=== PATIENT | female | born 1970 | race Caucasian/White ===

== ENCOUNTER 2018-10-12 21:45 | Emergency (ER) | payer OTHER ==
[2018-10-12] MEDS ORDERED: NS 0.9% 1000 ML* 1,000 ML IV ONE (22:44)
[2018-10-12] MEDS ORDERED: Morphine VIAL* 10 MG/ML 1 ML VIAL IV ONE (22:52)
[2018-10-12] MEDS ORDERED: Ondansetron INJ* 2 MG/ML VIAL IV ONE (22:52)
[2018-10-12] MEDS ORDERED: Morphine VIAL* 4 MG/ML VIAL (1 ml vial) ONE (23:07)
[2018-10-12] MEDS ORDERED: Morphine VIAL* 4 MG/ML VIAL (1 ml vial) IV ONE (23:09)
--- NOTE | 2018-10-12 23:14 | ED ---
Abdominal Pain/Female - HPI Summary HPI Summary: Patient complains of sudden onset epigastric abdominal pain radiating through to back starting 10/11. States pain was intermittent yesterday, sharp, constant today and progressive. Denies history of same. Episode of burning with urination yesterday but none today. States pain at times worse with eating. Denies fever, cough, sore throat, CP, SOB, N/V/D, change in BM, vaginal symptoms. Medical history is none. Abdominal surgical history is partial hysterectomy. - History of Current Complaint Chief Complaint: EDAbdPain Stated Complaint: ABD PAIN Time Seen by Provider: 10/12/18 22:40 Hx Obtained From: Patient Onset/Duration: Sudden Onset Timing: Constant Severity Initially: Moderate Severity Currently: Moderate Pain Intensity: 4 Pain Scale Used: 0-10 Numeric Location: Epigastric Radiates: Yes Radiates to: Back Character: Sharp Aggravating Factor(s): Food Alleviating Factor(s): Nothing Allergies/Adverse Reactions: Allergies Allergy/AdvReac Type Severity Reaction Status Date / Time aspirin Allergy See Comment Verified 10/12/18 22:57 Home Medications: Home Medications traZODone TAB* [Desyrel TAB*] 100 mg PO BEDTIME 10/12/18 [History Confirmed ] PMH/Surg Hx/FS Hx/Imm Hx Endocrine/Hematology History: Denies: Hx Diabetes Cardiovascular History: Denies: Hx Congestive Heart Failure, Hx Hypertension GI History: Denies: Hx Diverticulosis History: Reports: Other Problems/Disorders - endometriosis Denies: Hx Renal Disease Sensory History: Denies: Hx Eye Prosthesis EENT History: Denies: Hx Deafness Neurological History: Denies: Hx Developmental Delay Psychiatric History: Reports: Hx Depression, Hx Schizophrenia, Hx Bipolar Disorder Denies: Hx Eating Disorder, Hx of Violent Episodes Against Others - Surgical History Surgery Procedure, Year, and Place: Partial hysterectomy Infectious Disease History: No Infectious Disease History: Denies: Traveled Outside the [place] in Last 30 Days - Family History Known Family History: Positive: None, Other - depression Family History: R & n/C - Social History Alcohol Use: Weekly Alcohol Amount: once weekly Hx Substance Use: No Substance Use Type: Reports: None Hx Tobacco Use: Yes Smoking Status (MU): Heavy Every Day Tobacco Smoker Review of Systems Constitutional: Negative Eyes: Negative ENT: Negative Cardiovascular: Negative Respiratory: Negative Positive: Abdominal Pain Genitourinary: Negative Musculoskeletal: Negative Skin: Negative Neurological: Negative Psychological: Normal All Other Systems Reviewed And Are Negative: Yes Physical Exam - Summary Physical Exam Summary: Pain in epigastric and left upper quadrant with palpation of abdomen. Mild pain in right upper quadrant. Lower abdominal exam unremarkable. Triage Information Reviewed: Yes Vital Signs On Initial Exam: Initial Vitals Temp Pulse Resp BP Pulse Ox 98.5 F 85 16 137/73 100 10/12/18 22:00 10/12/18 22:00 10/12/18 22:00 10/12/18 22:00 10/12/18 22:00 Vital Signs Reviewed: Yes Appearance: Positive: Well-Appearing Skin: Positive: Warm Head/Face: Positive: Normal Head/Face Inspection Eyes: Positive: Normal Neck: Positive: Supple Respiratory/Lung Sounds: Positive: Clear to Auscultation Cardiovascular: Positive: Normal Abdomen Description: Positive: Other:. Negative: CVA Tenderness (R), CVA Tenderness (L) Musculoskeletal: Positive: Normal Neurological: Positive: Normal Psychiatric: Positive: Normal AVPU Assessment: Alert - Walt Coma Scale Best Eye Response: 4 - Spontaneous Best Motor Response: 6 - Obeys Commands Best Verbal Response: 5 - Oriented Coma Scale Total: 15 Diagnostics - Vital Signs Vital Signs Temp Pulse Resp BP Pulse Ox 10/12/18 23:09 16 10/12/18 22:00 98.5 F 85 16 137/73 100 - Laboratory Result Diagrams: 10/12/18 23:13 10/12/18 23:13 Lab Statement: Any lab studies that have been ordered have been reviewed, and results considered in the medical decision making process. Abdominal Pain Fem Course/Dx - Course Course Of Treatment: Patient complains of sudden onset epigastric abdominal pain radiating through to back starting 10/11. States pain was intermittent yesterday, sharp, constant today and progressive. Denies history of same. Episode of burning with urination yesterday but none today. States pain at times worse with eating. Denies fever, cough, sore throat, CP, SOB, N/V/D, change in BM, vaginal symptoms. Medical history is none. Abdominal surgical history is partial hysterectomy. Physical exam:Pain in epigastric and left upper quadrant with palpation of abdomen. Mild pain in right upper quadrant. Lower abdominal exam unremarkable. Vital signs within normal limits. Labs unremarkable. UrineNEG. Ultrasound Gallbladder positive for cholelithiasis, negative for cholecystitis. CT abdomen and pelvis with contrast positive only for cholelithiasis. Likely gastritis. RX for omeprazole. - Diagnoses Provider Diagnoses: Gastritis Discharge - Sign-Out/Discharge Documenting (check all that apply): Patient Departure - Discharge Plan Condition: Stable Disposition: HOME Prescriptions: Lidocaine 2% VISCOUS* [Xylocaine 2% Viscous*] 15 ml .SEE ORDER Q6H PRN #1 btl PRN Reason: Pain Omeprazole 20 mg PO DAILY 30 Days #30 capsule. Patient Education Materials: Gastritis (ED) Referrals: Dru Spence NP [Primary Care Provider] - Amy Smith MD [Medical Doctor] - Additional Instructions: Take omeprazole 20 mg daily. Follow-up with primary care. Return to the ED for any new or worsening symptoms. - Billing Disposition and Condition Condition: STABLE Disposition: Home
[2018-10-12 23:22] LABS: ABS Basophils 0.1 10^3/ul (0-0.2); ABS Eosinophils 0.1 10^3/ul (0-0.6); ABS Lymphocytes 4.4 10^3/ul (1.0-4.8); ABS Monocytes 0.8 10^3/ul (0-0.8); ABS Neutrophils 5.3 10^3/ul (1.5-7.7); ABS Nucleated RBC 0 10^3/ul; Eosinophil % 1.1 %; Hematocrit 44 % (35-47); Lymphocyte % 40.9 %; Mean Corpuscular HGB Conc 34 g/dl (31-36); Mean Corpuscular Hemoglobin 30 pg (27-31); Mean Corpuscular Volume 86 fL (80-97); Mean Platelet Volume 8.2 fL (7.4-10.4); Nucleated Red Blood Cells % 0; Platelet Count 306 10^3/ul (150-450); Red Blood Count 5.11 10^6/ul (4.00-5.40); Red Cell Distribution Width 14 % (10.5-15); White Blood Count 10.7 10^3/ul (3.5-10.8)
[2018-10-12 23:45] LABS: Albumin 4.3 g/dL (3.2-5.2); Albumin/Globulin Ratio 1.9 (1-3); BUN/Creatinine Ratio 20.7 (8-20); C Reactive Protein 2.83 mg/L (<8.01); Calcium 9.5 mg/dL (8.6-10.3); EGFR Non-African American 68.9 (>60); Globulin 2.3 g/dL (2-4); Potassium 3.7 mmol/L (3.5-5.0); Total Bilirubin 0.2 mg/dL (0.2-1.0); Total Protein 6.6 g/dL (6.4-8.9)
[2018-10-12] MEDS ORDERED: Iohexol 300* (CONTRAST) 10 ML SDV IV ONE (23:51)
[2018-10-13] MEDS ORDERED: Al Hydrox/Mg Hydrox/Simet LIQ* 30 ML UDC PO ONE (00:55)
[2018-10-13] MEDS ORDERED: Lidocaine 2% VISCOUS* 15 ML UDC PO ONE (00:55)
[2018-10-13] MEDS ORDERED: Omeprazole CAP* 20 MG PO ONE (00:55)
[2018-10-13 01:25] LABS: Urine Appearance Clear; Urine Bacteria Absent (Absent); Urine Bilirubin Negative (Negative); Urine Blood 1+ (Negative); Urine Color Yellow; Urine Glucose Negative (Negative); Urine Ketones Negative (Negative); Urine Nitrite Negative (Negative); Urine Protein Negative (Negative); Urine Red Blood Cell 2+(6-10/hpf) (Absent); Urine Specific Gravity 1.043 (1.010-1.030); Urine Urobilinogen Negative (Negative); Urine White Blood Cell Absent (Absent)
[2018-10-13 01:44] VITALS: BP 111/60
== END 2018-10-13 01:47 | disposition home or self-care (01) ==
LOC: ED 21:45
DX: K29.70 Gastritis, unspecified, without bleeding (principal); R10.13 Epigastric pain; Z88.6 Allergy status to analgesic agent; F17.210 Nicotine dependence, cigarettes, uncomplicated
CPT/HCPCS: 36415; 74177; 76705; 80053; 81003; 81015; 83605; 83690; 85025; 86140; 96361; 96374; 96375; 99283; A9270-GY; J2270; J2405; Q9967

== ENCOUNTER → 2018-11-21 12:14 | Day surgery (SDC) | payer OTHER ==
[~2018-11-21 12:14] MED LIST: Buffered Lidocaine 1% SYRIN* 1 ML/SYRINGE INTRADERM ONE; Bupivacaine 0.5%* 50 ML VIAL ONE; Dexamethasone TAB* 4 MG ONE; Dexamethasone TAB* 4 MG PO ONE; DiMENhydriNATE IV* 50 MG/ML VIAL IV PUSH PRN; DiMENhydriNATE IV* 50 MG/ML VIAL ONE; Famotidine IV* 10 MG/ML 2 ML (20 mg) IV ONE; Famotidine IV* 10 MG/ML 2 ML (20 mg) ONE; Glycopyrrolate IV* 0.2 MG/ML 1 ML VIAL ONE; KETAMINE HCL* 50 MG/ML 10 ML VIAL ONE; Ketorolac INJ* 30 MG/ML 1 ML VIAL ONE; Lactated Ringers 1000 ML Bag* 1,000 ML IV SCH; Lidocaine 2% PF * 5 ML VIAL ONE; Midazolam* 1 MG/ML 5 ML VIAL (5 MG) ONE; Morphine VIAL* 10 MG/ML 1 ML VIAL ONE; Morphine VIAL* 4 MG/ML VIAL (1 ml vial) ONE; Naloxone* 0.4 MG/ML 1 ML VIAL IV PRN; Ondansetron INJ* 2 MG/ML VIAL ONE; Ondansetron ODT TAB* 4 MG ONE; PROCHLORPERAZINE INJ 5 MG/ML 2 ML VIAL IV PRN; Propofol* 10 MG/ML 20 ML BTL ONE; ceFAZolin 2 GM PREMIX in ORs 2 GM/50 ML BAG IVPB ONE; fentaNYL* 50 MCG/ML 2 ML VIAL (100 MCG VIAL) ONE; oxyCODONE/Acetamin 5/325 MG* TAB ONE
[2018-11-21] MEDS: Morphine VIAL* 4 MG/ML VIAL (1 ml vial) IV PRN ×2 (15:40→15:47)
[2018-11-21] MEDS: oxyCODONE/Acetamin 5/325 MG* TAB PO PRN ×2 (15:50→15:52)
[2018-11-21] MEDS: fentaNYL* 50 MCG/ML 2 ML VIAL (100 MCG VIAL) IV PRN ×2 (15:57→16:03)
[2018-11-21 16:37] VITALS: BP 153/69
--- NOTE | 2018-11-21 20:47 | OP ---
OPERATIVE REPORT: DATE OF OPERATION: 11/21/18 DATE OF : 66 ATTENDING SURGEON: Julio César Rasmussen MD PRE-OP DIAGNOSIS: Cholecystitis. POST-OP DIAGNOSIS: Cholecystitis. OPERATIVE PROCEDURE: Laparoscopic cholecystectomy. INDICATIONS FOR PROCEDURE: Cholecystitis. Risks include but not limited to bleeding, infection, inj ury to intraabdominal contents including the bowel, bladder, liver were explained to the patient. Sh e seemed to understand and agreed to the procedure and all questions were answered. DESCRIPTION OF PROCEDURE: The patient was taken to the operating room and placed supine. Preoperati ve antibiotics were given. After the successful induction of general endotracheal anesthesia, the ab domen was prepped and draped in sterile fashion. Time-out was performed, identifying correct patient , correct procedure. A 5 mm trocar was placed in the subxiphoid position under direct visualization o f the camera using a Optiview port, 5 mm. Pneumoperitoneum was achieved at 15 mmHg. A camera was mesfin rupal in the abdomen. The abdomen was scanned. There was no obvious injury from trocar placement. A 12 mm umbilical trocar was placed and 2 right- sided 5 mm trocars were placed all under direct visual ization of the camera. The fundus of the the gallbladder has been retracted up and over the liver. The cystic duct was identified, isolated, clipped, and divided. The artery was identified, isolated, clipped and divided. The gallbladder was removed from the hepatic bed using Bovie cautery hook. It was placed into an Endo bag and removed through the umbilical port site. The was irrigated a nd aspirated dry. EBL minimal. Hemostasis was intact. Clips were in place. Pneumoperitoneum was re leased from the abdomen. The umbilical fascia was closed with an 0 Vicryl suture. The skin was clos ed with Monocryl and glue along with each port site. The patient tolerated the procedure well. She was extubated and taken to the recovery room in stable condition. [id number]/[facility] #: [id number]
== END | disposition home or self-care (01) ==
LOC: OR 12:14
PROVIDERS: ATTEND Surgery
DX: K80.10 Calculus of gallbladder with chronic cholecystitis without obstruction (principal); Z72.0 Tobacco use; F31.9 Bipolar disorder, unspecified; F43.10 Post-traumatic stress disorder, unspecified
CPT/HCPCS: 36415; 86703; 88304; A9270-GY; J0690; J1240; J1885; J2250; J2270; J2405; J2704; J3010; J8540